=== PATIENT | male | born 1990 | race Two or more races ===

== ENCOUNTER 2020-10-17 16:16 | Emergency (ER) | payer SELFPAY ==
[~2020-10-17] VITALS: Ht 167.6 cm; Wt 86.9 kg
[2020-10-17] MEDS ORDERED: ASPIRIN 81 MG TABLET CHEW PO ONE (17:00)
[2020-10-17 17:17] LABS: BASOPHILS % (AUTO) 1 % (0-1); EOSINOPHILS % (AUTO) 1 % (1-7); LYMPHOCYTES % (AUTO) 35 % (22-44); MEAN CORPUSCULAR HEMOGLOBIN 30.3 pg (27.5-34.5); MEAN CORPUSCULAR HGB CONC 34.5 g/dL (33.2-36.2); MEAN PLATELET VOLUME 7.3 fL (7.4-10.4); MONOCYTES % (AUTO) 10 % (2-9); NEUTROPHILS % (AUTO) 53 % (42-75); PLATELET COUNT 243 x10^3/uL (130-400); RED BLOOD COUNT 5.23 x10^6/uL (4.38-5.82); RED CELL DISTRIBUTION WIDTH 12.8 % (9.4-14.8)
[2020-10-17 17:20] LABS: MD NO
[2020-10-17 17:30] LABS: ANION GAP 3 mmol/L (5-15); CALCIUM 9.2 mg/dL (8.5-10.1); CHLORIDE 107 mmol/L (98-107)
[2020-10-17] MEDS ORDERED: LORazepam 1MG TABLET PO ONE (18:00)
[2020-10-17 18:08] LABS: ALANINE AMINOTRANSFERASE 71 U/L (12-78); ALKALINE PHOSPHATASE 116 U/L (45-117); BILIRUBIN,TOTAL 0.7 mg/dL (0.2-1.0); CREATININE 1.12 mg/dL (0.7-1.3); TOTAL PROTEIN 8.7 g/dL (6.4-8.2); TROPONIN I < 0.015 ng/mL (0.000-0.045)
[2020-10-17] MEDS ORDERED: LORazepam 1MG TABLET ONE (18:35)
[2020-10-17] MEDS ORDERED: ASPIRIN 81 MG TABLET CHEW ONE (18:41)
--- NOTE | 2020-10-17 19:07 | NUR ---
Security Public Safety Officer services in use whenever this RN or MD interacting with pt. Pt states "my friend told me I have DM and that's why I have this wound on my hand." Pt states he just moved here and is living with a friend but has no job or money currently. JANINA. Connected to BP and O2 monitors. Continually asking to take them off.
[2020-10-17 19:13] LABS: AMPHETAMINE SCREEN, URINE Negative (Negative); BARBITURATE SCREEN, URINE Negative (Negative); BENZODIAZEPINE SCREEN, URINE Negative (Negative); CANNABINOID SCREEN, URINE Negative (Negative); COCAINE SCREEN, URINE Negative (Negative); METHADONE SCREEN, URINE Negative (Negative); OPIATE SCREEN, URINE Negative (Negative)
--- NOTE | 2020-10-17 19:14 | NUR ---
REPORT RECEVIED FROM JONATHAN MILLER
[2020-10-17 19:33] VITALS: BP 127/90
== END 2020-10-17 19:34 | disposition home or self-care (01) ==
LOC: ED 18:35
DX: F41.1 Generalized anxiety disorder (principal); I10 Essential (primary) hypertension; R07.9 Chest pain, unspecified; R94.31 Abnormal electrocardiogram [ECG] [EKG]
CPT/HCPCS: 36415; 71045; 80053; 80307; 80320; 83880; 84484; 85025; 93005; 99285; G0480